=== PATIENT | female | born 2000 | race Caucasian/White ===

== ENCOUNTER 2018-05-21 16:40 | Outpatient (REF) | payer OTHER, SELFPAY ==
[2018-05-21 18:48] LABS: HCT 37.6 % (36.0-46.0); HGB 12.8 g/dL (12.0-15.5); Mean Corpuscular Hemoglobin 28.9 pg (27.0-33.0); Mean Corpuscular Volume 84.9 fL (80-95); Platelet Count 230 x1000/uL (130-400); RBC 4.43 m/cumm (4.00-5.20); RBC Distribution Width 13.5 % (11.7-14.6); White Blood Cell Count 5.97 k/cumm (4.4-10.8)
[2018-05-21 19:11] LABS: Glucose 95 mg/dL (70-100); TSH 1.47 uIU/mL (0.516-4.13)
== END 2018-05-21 17:00 ==
LOC: NCHCN 16:40
PROVIDERS: PCP Physician Assistant Medical; Visit Provider Internal Medicine
DX: J03.01 Acute recurrent streptococcal tonsillitis (principal); Z00.00 Encounter for general adult medical examination without abnormal findings
CPT/HCPCS: 82947; 85027; 84443

== ENCOUNTER 2019-08-10 16:41 | Outpatient (REF) | payer OTHER, SELFPAY ==
[2019-08-10 19:24] LABS: HCT 39.7 % (36.0-46.0); HGB 13.6 g/dL (12.0-15.5); Mean Corp. HGB Concentration 34.3 g/dL (32.0-36.0); Mean Corpuscular Hemoglobin 29.7 pg (27.0-33.0); Mean Corpuscular Volume 86.7 fL (80-95); Mean Platelet Volume 12.3 fL (8.0-11.0); Platelet Count 215 x1000/uL (130-400); RBC 4.58 m/cumm (4.00-5.20); RBC Distribution Width 12.5 % (11.7-14.6); White Blood Cell Count 5.58 k/cumm (4.4-10.8)
[2019-08-10 19:55] LABS: Glucose 76 mg/dL (74-106); TSH 2.75 uIU/mL (0.36-3.74)
[2019-08-10 20:01] LABS: Hemoglobin A1C 5.5 % (3.8-5.6)
[2019-08-13 10:48] LABS: DHEA Sulfate 226 ug/dL (134-407)
[2019-08-14 03:32] LABS: 17-Hydroxyprogesterone 146 ng/dL
[2019-08-14 09:58] LABS: Testosterone, Total 53 ng/dL (8-60)
== END 2019-08-10 17:01 ==
LOC: NCHCN 16:41
PROVIDERS: PCP Physician Assistant Medical; Visit Provider Internal Medicine
DX: N92.6 Irregular menstruation, unspecified (principal)
CPT/HCPCS: 82627; 82947; 84403; 85027; 83036; 83498; 84443

== ENCOUNTER 2022-04-30 16:14 | Outpatient (REF) | payer OTHER, SELFPAY ==
--- NOTE | 2022-04-30 15:30 | PAPFT_PTH ---
PATIENT: Noemi Zarate I LOC: [facility]#:[id number] AGE/SX: 21/ ROOM: RE04/30/[address]: Natty Jimenez : 2000 BED: DIS: 04/30/2022 SPEC #: [id number] RECD: 05/01/22 13:10 STATUS: ESTEFANIA REDevi #: [id number] KATHI: 04/30/22 15:[address]: Natty Jimenez DEPT: [facility] Cytology RECD BY: Bridget Mandujano ENTERED: 05/01/22 13:10 SP TYPE: PAPFT OTHR DR: Meena Thayer Tissues: 1 - CX/ENDOCX FOR PAP SMEARS Procedures: PAP THIN PREP/[facility] Screening Comments: [id number] (CHLAMYDIA/GC)
[2022-05-02 14:48] LABS: Chlamydia Result Negative (Negative); GC Result Negative (Negative)
== END 2022-04-30 16:15 | disposition home or self-care (01) ==
LOC: NCHCN 16:14
PROVIDERS: PCP Physician Assistant Medical; Visit Provider Physician Assistant
DX: Z11.3 Encounter for screening for infections with a predominantly sexual mode of transmission (principal); Z12.4 Encounter for screening for malignant neoplasm of cervix; Z87.410 Personal history of cervical dysplasia
CPT/HCPCS: 87491; 87591; 88142